=== PATIENT | female | born 1965 | race Caucasian/White ===

== ENCOUNTER 2020-01-19 13:08 | Day surgery (SDC) | payer BC ==
[~2020-01-19] VITALS: Ht 165.1 cm; Wt 80.6 kg
[2020-01-19] MEDS ORDERED: PAXIL 20MG20 MG PO (13:29)
[2020-01-19] MEDS ORDERED: NORVASC 5MG5 MG/TAB PO (13:30)
[2020-01-19 13:31] VITALS: BP 126/84; PULSE 83; TEMP 98.3
[2020-01-19] MEDS ORDERED: COREG12.5 MG PO (13:31)
[2020-01-19 14:50] VITALS: BP 123/67; PULSE 72; TEMP 98.2
--- NOTE | 2020-01-19 14:50 | NUR ---
Pt arrived back to room via cart with Endo RN. She ambulated easily to chair with stand by assist. Upon assessment, pt's VSS and WNL. Pt denies nausea or pain and muffin and coffee brought per her request. reviewed procedure via phone with .
[2020-01-19 15:15] VITALS: BP 123/66; PULSE 77
--- NOTE | 2020-01-19 15:15 | NUR ---
Pt states that she is ready to go home, and she meets criteria for discharge. VSS and WNL. Reviewed discharge information with patient including signs and symptoms and when to call the dr and when to go to ED. Pt agrees and expresses understanding of the plan.
== END 2020-01-19 15:35 | disposition home or self-care (01) ==
LOC: SDCO 13:08
DX: Z12.11 Encounter for screening for malignant neoplasm of colon (principal); I10 Essential (primary) hypertension; F41.9 Anxiety disorder, unspecified; Z87.891 Personal history of nicotine dependence
CPT/HCPCS: J2704; J7030

== ENCOUNTER → 2020-02-02 | Outpatient (CLI) | payer BC ==
[~2020-02-02] MED LIST: COREG12.5 MG PO; NORVASC 5MG5 MG/TAB PO; PAXIL 20MG20 MG PO
== END ==
LOC: MC.RAD 14:15
DX: Z12.31 Encounter for screening mammogram for malignant neoplasm of breast (principal)